=== PATIENT | female | born 1965 | race African-American/Black ===

== ENCOUNTER 2019-06-26 09:35 | Inpatient (IN) | payer MEDICAID ==
[~2019-06-26] VITALS: Ht 162.6 cm; Wt 99.8 kg
[2019-06-26] MEDS ORDERED: TOPI25 PO (09:51)
[2019-06-26] MEDS ORDERED: BUPR75 PO (09:51)
[2019-06-26] MEDS ORDERED: FLUO-191 PO (09:51)
[2019-06-26] MEDS ORDERED: SIMV-260 PO (09:51)
[2019-06-26] MEDS ORDERED: OXYB5XL PO (09:51)
[2019-06-26] MEDS ORDERED: METF-960 PO (09:51)
[2019-06-26] MEDS ORDERED: ALPR2TAB97 PO (09:51)
[2019-06-26] MEDS ORDERED: BREX3TAB PO (09:51)
[2019-06-26] MEDS ORDERED: GABA-533 PO (09:51)
[2019-06-26 10:02] LABS: GLUCOSE,POINT OF CARE 107 MG/DL (70-110)
[2019-06-26 10:27] LABS: BASOPHILS % (AUTO) 0.5 % (0.0-2.0); EOSINOPHILS % (AUTO) 0.7 % (1.0-6.0); HEMATOCRIT 41.4 % (36-46); HEMOGLOBIN 13.9 g/dL (12.0-16.0); LYMPHOCYTES % (AUTO) 15.1 % (22.0-44.0); MEAN CORPUSCULAR HEMOGLOBIN 29.2 pg (26.0-34.0); MEAN CORPUSCULAR HGB CONC 33.5 G/dL (31.0-37.0); MEAN CORPUSCULAR VOLUME 87 fL (80-100); MONOCYTES # (AUTO) 0.8 K/uL (0.1-1.0); MONOCYTES % (AUTO) 6.3 % (2.0-9.0); NEUTROPHILS # (AUTO) 10.2 K/uL (1.8-7.7); NEUTROPHILS % (AUTO) 77.4 % (40.0-70.0); PLATELET COUNT (AUTO) 225 K/uL (150-450); RED BLOOD CELL COUNT(AUTO) 4.76 MIL/uL (4.00-5.20); RED CELL DISTRIBUTION WIDTH 14.5 % (11.5-14.5)
[2019-06-26 10:35] LABS: ANION GAP 9 mmol/L (8-16); CALCIUM, TOTAL 8.8 mg/dL (8.8-10.5); CARBON DIOXIDE 27 mmol/L (22-29); CHLORIDE 107 mmol/L (98-107); CREATININE 0.82 mg/dL (0.60-1.30); GLOMERULAR FILTR. RATE CALC > 60 mL/min (>60); GLUCOSE,RANDOM 108 mg/dL (70-110); POTASSIUM 3.7 mmol/L (3.5-5.1); SODIUM SERUM 143 mmol/L (136-145); UREA NITROGEN, BLOOD 9 mg/dL (7-18)
[2019-06-26 10:39] LABS: PROTHROMBIN TIME 10.1 SEC (9.4-11.6)
[2019-06-26] MEDS ORDERED: SODIUM CHLORIDE 0.9% 2,950 ML IV ONE (10:57)
[2019-06-26 10:59] LABS: APPEARANCE,URINE CLEAR (CLEAR); BILIRUBIN,URINE NEGATIVE (NEGATIVE); GLUCOSE, URINE (UA) NEGATIVE (NEGATIVE); KETONES,URINE NEGATIVE (NEGATIVE); LEUKOCYTE ESTERASE ,URINE NEGATIVE (NEGATIVE); NITRATE,URINE NEGATIVE (NEGATIVE); OCCULT BLOOD,URINE NEGATIVE (NEGATIVE); PROTEIN,URINE NEGATIVE (NEGATIVE)
[2019-06-26 11:00] LABS: ALANINE AMINOTRANSFERASE 25 U/L (12-78); ALBUMIN 3.4 g/dL (3.4-5.0); ALKALINE PHOSPHATASE 72 U/L (46-116); ASPARTATE AMINOTRANSFERASE 17 U/L (15-37); BILIRUBIN,TOTAL 0.5 mg/dL (0.1-1.0); CREATINE KINASE, TOTAL ONLY 111 U/L (26-192); TOTAL PROTEIN, SERUM 7.2 g/dL (6.4-8.2)
[2019-06-26] MEDS ORDERED: OXYB5 PO (11:01)
[2019-06-26] MEDS ORDERED: CALC-888 PO (11:01)
[2019-06-26] MEDS ORDERED: ALPR1TAB7 PO (11:01)
[2019-06-26] MEDS ORDERED: BUPR-93 PO (11:01)
[2019-06-26] MEDS ORDERED: OMEP20CA12 PO (11:01)
[2019-06-26 11:05] LABS: AMPHET/METH SCREEN,URINE NEGATIVE (NEGATIVE); BARBITURATE SCREEN, URINE NEGATIVE (NEGATIVE); BENZODIAZEPINES SCREEN,URINE POSITIVE (NEGATIVE); CANNABINOID SCREEN,URINE NEGATIVE (NEGATIVE); COCAINE SCREEN,URINE NEGATIVE (NEGATIVE); METHADONE SCREEN, URINE NEGATIVE (NEGATIVE); OPIATE SCREEN,URINE NEGATIVE (NEGATIVE)
[2019-06-26 11:06] LABS: PHENCYCLIDINE SCREEN,URINE NEGATIVE (NEGATIVE)
[2019-06-26 12:00] LABS: ERYTHROCYTE SEDIMENTATION RATE 17 MM/HR (0-20)
[2019-06-26] MEDS ORDERED: NOREPINEPHRINE 4 MG/D5%-WATER 250 ML IV PRN (12:40)
[2019-06-26] MEDS ORDERED: NALOXONE HCL 1 MG/ML 2 ML SYG IVP ONE ×2 (12:45→13:15)
[2019-06-26] MEDS ORDERED: NALOXONE HCL 1 MG/ML 2 ML SYG ONE (12:46)
[2019-06-26] MEDS ORDERED: 0.9% SODIUM CHLORIDE 10 ML SYRINGE IVP PRN (14:45)
[2019-06-26] MEDS ORDERED: AZITHROMYCIN 500 MG/NS 250 ML IV ONE (14:45)
[2019-06-26] MEDS ORDERED: CefTRIAXone 1 GM/DEXTROSE 50 ML IV ONE (14:45)
[2019-06-26] MEDS ORDERED: ONDANSETRON HCL 4 MG/2 ML VIAL IVP PRN ×2 (14:45→20:45)
[2019-06-26] MEDS ORDERED: ASPIRIN 600 MG RECTAL SUPPOSITORY PR ONE (14:45)
[2019-06-26] MEDS ORDERED: ACETAMINOPHEN 325 MG TABLET PO PRN ×2 (14:45→20:45)
[2019-06-26 16:00] VITALS: BP 113/69
[2019-06-26 20:00] VITALS: BP 94/55
[2019-06-26] MEDS ORDERED: ZOLPIDEM TARTRATE 5 MG TABLET PO PRN (20:45)
[2019-06-26] MEDS ORDERED: MAGNESIUM HYDROXIDE SUSPENSION 30 ML UDCUP PO PRN (20:45)
[2019-06-26] MEDS ORDERED: MORPHINE SULFATE 2 MG/ML SYRINGE IVP PRN (20:45)
[2019-06-26] MEDS ORDERED: IPRATROPIUM BROMIDE 0.5 MG/2.5 ML NEB SOLUTION NEB PRN (20:45)
[2019-06-26] MEDS ORDERED: BISACODYL 10 MG RECTAL RECTAL SUPPOSITORY PR PRN (20:45)
[2019-06-26] MEDS ORDERED: ALBUTEROL SULFATE 2.5 MG/0.5 ML NEB SOLUTION NEB PRN (20:45)
[2019-06-26] MEDS: DOCUSATE SODIUM 100 MG CAPSULE PO SCH (21:57)
[2019-06-26] MEDS: SIMVASTATIN 20 MG TABLET PO SCH (21:57)
[2019-06-26] MEDS: GABAPENTIN 400 MG CAPSULE PO SCH (21:57)
[2019-06-26] MEDS: OXYBUTYNIN CHLORIDE 5 MG TABLET PO SCH (21:57)
[2019-06-26 22:41] LABS: INFLUENZA TYPE A NEGATIVE FOR TYPE A (NEGATIVE); INFLUENZA TYPE B NEGATIVE FOR TYPE B (NEGATIVE)
[2019-06-26] MEDS: HEPARIN SODIUM,PORCINE 5,000 UNITS/ML VIAL SQ SCH (23:28)
[2019-06-27] VITALS: BP 93/58
[2019-06-27 04:00] VITALS: BP 96/45
[2019-06-27 05:36] LABS: BASOPHILS % (AUTO) 0.6 % (0.0-2.0); EOSINOPHILS % (AUTO) 1.4 % (1.0-6.0); HEMATOCRIT 37.9 % (36-46); HEMOGLOBIN 12.7 g/dL (12.0-16.0); LYMPHOCYTES # (AUTO) 1.5 K/uL (1.0-4.8); LYMPHOCYTES % (AUTO) 19.4 % (22.0-44.0); MEAN CORPUSCULAR HEMOGLOBIN 29.6 pg (26.0-34.0); MEAN CORPUSCULAR HGB CONC 33.5 G/dL (31.0-37.0); MEAN CORPUSCULAR VOLUME 88 fL (80-100); MONOCYTES # (AUTO) 0.6 K/uL (0.1-1.0); NEUTROPHILS # (AUTO) 5.4 K/uL (1.8-7.7); NEUTROPHILS % (AUTO) 70.6 % (40.0-70.0); PLATELET COUNT (AUTO) 204 K/uL (150-450); RED BLOOD CELL COUNT(AUTO) 4.29 MIL/uL (4.00-5.20); RED CELL DISTRIBUTION WIDTH 14.5 % (11.5-14.5)
[2019-06-27 05:56] LABS: ALANINE AMINOTRANSFERASE 21 U/L (12-78); ALBUMIN 2.7 g/dL (3.4-5.0); ALKALINE PHOSPHATASE 59 U/L (46-116); ANION GAP 5 mmol/L (8-16); ASPARTATE AMINOTRANSFERASE 15 U/L (15-37); BILIRUBIN,TOTAL 0.4 mg/dL (0.1-1.0); CALCIUM, TOTAL 7.5 mg/dL (8.8-10.5); CARBON DIOXIDE 27 mmol/L (22-29); CHLORIDE 113 mmol/L (98-107); CREATININE 0.76 mg/dL (0.60-1.30); GLOMERULAR FILTR. RATE CALC > 60 mL/min (>60); GLUCOSE,RANDOM 117 mg/dL (70-110); POTASSIUM 3.9 mmol/L (3.5-5.1); SODIUM SERUM 145 mmol/L (136-145); TOTAL PROTEIN, SERUM 6.2 g/dL (6.4-8.2); UREA NITROGEN, BLOOD 6 mg/dL (7-18)
[2019-06-27] MEDS: HEPARIN SODIUM,PORCINE 5,000 UNITS/ML VIAL SQ SCH ×2 (07:59→17:43)
[2019-06-27] MEDS: GABAPENTIN 400 MG CAPSULE PO SCH (07:59)
[2019-06-27 08:00] VITALS: BP 125/61
[2019-06-27] MEDS: DOCUSATE SODIUM 100 MG CAPSULE PO SCH ×2 (08:00→21:00)
[2019-06-27] MEDS: OXYBUTYNIN CHLORIDE 5 MG TABLET PO SCH (08:00)
[2019-06-27] MEDS: ALPRAZolam 1 MG TABLET PO SCH ×3 (09:28→21:20)
[2019-06-27] MEDS ORDERED: GLUCAGON,HUMAN RECOMBINANT 1 MG VIAL IM PRN (10:30)
[2019-06-27] MEDS ORDERED: INSULIN LISPRO 100 UNITS/ML SQ PRN ×2 (10:30→10:45)
[2019-06-27] MEDS ORDERED: DEXTROSE 50%-WATER 25 GM/50 ML SYRINGE IVP PRN (10:45)
[2019-06-27 11:46] LABS: GLUCOSE,POINT OF CARE 140 MG/DL (70-110)
[2019-06-27 12:00] VITALS: BP 97/69
[2019-06-27] MEDS: ASPIRIN 81 MG CHEWABLE TABLET PO SCH (12:47)
[2019-06-27] MEDS ORDERED: CefTRIAXone 1 GM/DEXTROSE 50 ML IV SCH (14:00)
[2019-06-27] MEDS ORDERED: AZITHROMYCIN 500 MG/NS 250 ML IV SCH (15:00)
[2019-06-27 16:16] VITALS: BP 111/58
[2019-06-27] MEDS: HYDROCODONE/ACETAMINOPHEN 5-325 MG TABLET PO PRN (16:26)
[2019-06-27] MEDS: GABAPENTIN 300 MG CAPSULE PO SCH ×2 (16:26→21:21)
[2019-06-27 19:51] VITALS: BP 115/61
[2019-06-27] MEDS: SIMVASTATIN 20 MG TABLET PO SCH (21:21)
[2019-06-28 00:15] VITALS: BP 109/58
[2019-06-28 00:22] LABS: GLUCOMETER DEV NAME(LOC) 5N.1; GLUCOSE,POINT OF CARE 165 MG/DL (70-110)
[2019-06-28] MEDS: HEPARIN SODIUM,PORCINE 5,000 UNITS/ML VIAL SQ SCH ×2 (01:00→08:00)
[2019-06-28 03:56] VITALS: BP 124/77
[2019-06-28] MEDS: HYDROCODONE/ACETAMINOPHEN 5-325 MG TABLET PO PRN (05:01)
[2019-06-28 07:04] LABS: GLUCOMETER DEV NAME(LOC) 5N.1; GLUCOSE,POINT OF CARE 114 MG/DL (70-110)
[2019-06-28 07:19] LABS: BASOPHILS % (AUTO) 0.7 % (0.0-2.0); EOSINOPHILS % (AUTO) 1.3 % (1.0-6.0); HEMATOCRIT 39.9 % (36-46); HEMOGLOBIN 13.2 g/dL (12.0-16.0); LYMPHOCYTES # (AUTO) 2.3 K/uL (1.0-4.8); LYMPHOCYTES % (AUTO) 25.2 % (22.0-44.0); MEAN CORPUSCULAR HEMOGLOBIN 29.4 pg (26.0-34.0); MEAN CORPUSCULAR HGB CONC 33.1 G/dL (31.0-37.0); MEAN CORPUSCULAR VOLUME 89 fL (80-100); MONOCYTES # (AUTO) 0.9 K/uL (0.1-1.0); MONOCYTES % (AUTO) 9.8 % (2.0-9.0); NEUTROPHILS # (AUTO) 5.7 K/uL (1.8-7.7); PLATELET COUNT (AUTO) 216 K/uL (150-450); RED BLOOD CELL COUNT(AUTO) 4.49 MIL/uL (4.00-5.20); RED CELL DISTRIBUTION WIDTH 14.5 % (11.5-14.5)
[2019-06-28 08:04] LABS: CARBON DIOXIDE 27 mmol/L (22-29); CHLORIDE 109 mmol/L (98-107); POTASSIUM 3.9 mmol/L (3.5-5.1); SODIUM SERUM 144 mmol/L (136-145)
[2019-06-28 08:05] LABS: ALANINE AMINOTRANSFERASE 21 U/L (12-78); ALKALINE PHOSPHATASE 65 U/L (46-116); ANION GAP 8 mmol/L (8-16); ASPARTATE AMINOTRANSFERASE 14 U/L (15-37); BILIRUBIN,TOTAL 0.3 mg/dL (0.1-1.0); CALCIUM, TOTAL 8.7 mg/dL (8.8-10.5); CREATININE 0.84 mg/dL (0.60-1.30); GLOMERULAR FILTR. RATE CALC > 60 mL/min (>60); GLUCOSE,RANDOM 95 mg/dL (70-110); TOTAL PROTEIN, SERUM 6.9 g/dL (6.4-8.2)
[2019-06-28] MEDS: ALPRAZolam 1 MG TABLET PO SCH (08:13)
[2019-06-28] MEDS: GABAPENTIN 300 MG CAPSULE PO SCH (08:13)
[2019-06-28] MEDS: ASPIRIN 81 MG CHEWABLE TABLET PO SCH (08:13)
[2019-06-28] MEDS: DOCUSATE SODIUM 100 MG CAPSULE PO SCH (08:14)
[2019-06-28 08:22] VITALS: BP 136/76
[2019-06-28 09:02] LABS: UREA NITROGEN, BLOOD 9 mg/dL (7-18)
[2019-06-28 12:01] VITALS: BP 114/67
[2019-06-28] MEDS ORDERED: ALPRAZolam 1 MG TABLET PO SCH (16:00)
[2019-06-28] MEDS ORDERED: GABAPENTIN 300 MG CAPSULE PO SCH (21:00)
[2019-06-29 08:01] LABS: GLUCOMETER DEV NAME(LOC) 5S.1; GLUCOSE,POINT OF CARE 119 MG/DL (70-110)
== END 2019-06-28 14:46 | disposition home or self-care (01) | DRG 812 ==
LOC: EMS 09:37 → ICU 14:10 → 5N 06-27 15:45
PROVIDERS: ADMIT Internal Medicine; ATTEND Hospitalist
PROC: 05HC33Z Insertion of Infusion Device into Left Basilic Vein, Percutaneous Approach (ICD-10-PCS; principal; 2019-06-26)
PROC: B54NZZA Ultrasonography of Left Upper Extremity Veins, Guidance (ICD-10-PCS; 2019-06-26)
DX: T50.991A Poisoning by other drugs, medicaments and biological substances, accidental (unintentional), initial encounter (principal); G93.41 Metabolic encephalopathy; J18.9 Pneumonia, unspecified organism; I95.9 Hypotension, unspecified; E11.40 Type 2 diabetes mellitus with diabetic neuropathy, unspecified; R65.10 Systemic inflammatory response syndrome (SIRS) of non-infectious origin without acute organ dysfunction; E66.01 Morbid (severe) obesity due to excess calories; F20.9 Schizophrenia, unspecified; F17.210 Nicotine dependence, cigarettes, uncomplicated; H54.7 Unspecified visual loss; F41.1 Generalized anxiety disorder; F32.9 Major depressive disorder, single episode, unspecified; R09.89 Other specified symptoms and signs involving the circulatory and respiratory systems; Z79.84 Long term (current) use of oral hypoglycemic drugs; Z68.37 Body mass index [BMI] 37.0-37.9, adult; I69.339 Monoplegia of upper limb following cerebral infarction affecting unspecified side; Z79.899 Other long term (current) drug therapy; Y92.89 Other specified places as the place of occurrence of the external cause
CPT/HCPCS: 36245; 36569; 70450; 70551; 76937; 83605; 85651; 87040; 87081; 87804; 92610; 93005; 96374; 97166; 97535; 99291; G0378; G0480; J0456; J0696; J1644; J2310; J3490; J7030